=== PATIENT | female | born 1945 | race American Indian/Alaskan Native ===

== ENCOUNTER 2016-10-06 11:50 | Emergency (ER) | payer MEDICARE ==
[2016-10-06 11:50] VITALS: BMI 37.0
[2016-10-06] MEDS ORDERED: Sodium Chloride 0.9% 1,000 ML IV ONE (12:05)
--- NOTE | 2016-10-06 12:12 | C.PDOC ---
History Of Present Illness 70 y/o female presents to the ED with complaints of chest pain since 1100 today. Patient states pain started in right hand and radiated up her arm and into chest. Pain is sharp, 8/10 and intermittent. Patient also reports nausea. She has had similar pain in the past to her arms, from arthritis, but not the chest pain. Denies SOB, vomiting, diarrhea, leg pain or any other complaints. Denies injury. Denies hx CAD. Took aleve and aspirin at home MEDICAL ORDERLY. SHAISTA Risk Score for UA/NSTEMI - SHAISTA Risk Score Age > 64: YES 3 or more CAD Risk Factors: NO Known CAD (Stenosis greater than 50%): NO Aspirin use in past 7 days: NO Severe Angina: YES EKG ST changes greater than 0.5mm: NO Positive Cardiac Marker: NO SHAISTA Score: 2 % risk at 14 days of: all cause mortality, new or recurrent TN, or severe recurrent ischemia requiring urgen revascularization: 8% Wells Criteria for PE - Wells Criteria for Pulmonary Embolism Clinical Signs and Symptoms of DVT: No P.E is #1 Diagnosis, or Equally Likely: No Heart Rate >100: Yes Immobilization at least 3 days;Surgery previous 4 weeks: No Previous, objectively diagnosed PE or DVT: No Hemoptysis: No Malignancy w/treatment within 6 months, or palliative: No Total Score: 1.5 Time Seen by Provider: 10/06/16 11:59 Chief Complaint (Nursing): Chest Pain History Per: Patient History/Exam Limitations: no limitations Onset/Duration Of Symptoms: Waxing/Waning Current Symptoms Are (Timing): Still Present Severity: Severe Pain Scale Rating Of: 8 Quality: Sharp Modifying Factors: None Alleviating Factors: None Recent travel outside of the [place]: No Past Medical History Reviewed: Historical Data, Nursing Documentation, Vital Signs Vital Signs: Last Vital Signs Temp 98.1 F 10/06/16 14:34 Pulse 62 10/06/16 14:34 Resp 16 10/06/16 14:34 BP 144/70 10/06/16 14:34 Pulse Ox 98 10/06/16 14:34 - Medical History PMH: No Chronic Diseases Surgical History: Family History: States: Unknown Family Hx - Social History Hx Tobacco Use: No Hx Alcohol Use: No Hx Substance Use: No - Immunization History Hx Tetanus Toxoid Vaccination: No Hx Influenza Vaccination: No Hx Pneumococcal Vaccination: No Review Of Systems Constitutional: Negative for: Fever, Chills Cardiovascular: Positive for: Chest Pain Respiratory: Negative for: Shortness of Breath Gastrointestinal: Positive for: Nausea. Negative for: Vomiting, Abdominal Pain Musculoskeletal: Positive for: Arm Pain. Negative for: Shoulder Pain, Leg Pain Physical Exam - Physical Exam Appears: Non-toxic, No Acute Distress, Other (obese) Skin: Warm, Dry, No Rash Head: Atraumatic, Normacephalic Eye(s): bilateral: Normal Inspection, EOMI Neck: Normal, Normal ROM, Supple Chest: Symmetrical, Tenderness (reproducible pain to chest wall) Cardiovascular: Rhythm Regular, No Murmur Respiratory: Normal Breath Sounds, No Rales, No Rhonchi, No Wheezing Gastrointestinal/Abdominal: Normal Exam, Soft, No Tenderness Extremity: Normal ROM, No Tenderness, No Pedal Edema, No Calf Tenderness, Other (pain with abduction of right shoulder) Neurological/Psych: Oriented x3, Normal Speech, Normal Motor, Normal Sensation Gait: Steady ED Course And Treatment - Laboratory Results Result Diagrams: 10/06/16 12:27 10/06/16 12:27 Lab Interpretation: Abnormal Interpretation Of Abnormal: hypokalemia ECG: Interpreted By Me, Viewed By Me ECG Rhythm: Sinus Tachycardia ECG Interpretation: No Acute Changes, No Changes From Prior Rate From EC (BPM) - Radiology CXR: Interpreted by Me, Viewed By Me, Read By Radiologist CXR Interpretation: Yes: Other (Moderate venous congestion.). No: Infiltrates, Cardiomegaly Medical Decision Making Medical Decision Making: Plan: * EKG * CXR * labs * UA * IV fluids * nitroglycerin Progress: Labs reviewed and no acute findings, troponin was negative. Patient reevaluated and reports pain has mostly improved 3/10 on pain scale. Based on history and exam, recommend observation admission and serial cardiac enzymes. The patient declines admission to the hospital and wishes to leave the Emergency Department. This action is against my medical advice to the patient and the decision was made with informed refusal. The patient was told that admission is necessary and a full explanation of the rationale was given. The risks of leaving were explained to the patient and at bedside which include, but are not limited to, worsening chest pain, syncope, TN, permanent disability and deat. The patient has the capacity to make this informed decision and understands the clinical situation and my explanation of the risks of leaving. The patient voluntarily accepts these risks and a signed AMA form documenting our conversation was obtained.*The patient was given the opportunity to ask questions and reconsider. The patient was encouraged to return to the Emergency Department at any time for further care. 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 - Scribe Statement The provider has reviewed the documentation as recorded by the Scribe Mark Gill All medical record entries made by the Leopoldo were at my direction and personally dictated by me. I have reviewed the chart and agree that the record accurately reflects my personal performance of the history, physical exam, medical decision making, and the department course for this patient. I have also personally directed, reviewed, and agree with the discharge instructions and disposition.
[2016-10-06] MEDS ORDERED: Sodium Chloride 0.9% 1,000 ML ONE (12:28)
[2016-10-06 12:32] LABS: BASO % 0.6 % (0.0-2.0); EOS # 0.1 K/uL (0.0-0.7); EOS % 2.4 % (0.0-4.0); HEMATOCRIT 39.4 % (34.0-47.0); LYMPH % 48.7 % (20.0-40.0); MEAN CELL VOLUME 83.1 fL (81.0-99.0); MEAN CORPUSCULAR HGB CONC 32.5 g/dL (33.0-37.0); MEAN PLATELET VOLUME 10.2 fL (7.2-11.7); MONO # 0.5 K/uL (0.0-0.8); MONO % 8.2 % (0.0-10.0); NRBC % 0.1 % (0.0-2.0); RED CELL DISTRIBUTION WIDTH 13.9 % (11.5-14.5); WHITE BLOOD COUNT 6.1 K/uL (4.8-10.8)
[2016-10-06 12:41] LABS: INR 1.1
[2016-10-06 12:44] LABS: CHLORIDE 106 mmol/L (98-107)
[2016-10-06 12:45] LABS: POTASSIUM 3.1 mmol/L (3.6-5.2); SODIUM 140 mmol/L (132-148)
[2016-10-06 12:47] LABS: ALB/GLOB RATIO 1.1 (1.0-2.1); ALKALINE PHOSPHATASE 118 U/L (38-126); AST/SGOT 19 U/L (14-36); BILIRUBIN,TOTAL 0.7 mg/dL (0.2-1.3); BLOOD UREA NITROGEN 8 mg/dL (7-17); CARBON DIOXIDE 25 mmol/L (22-30); CHOLESTEROL 174 mg/dL (0-199); GFR AFRICAN-AMERICAN > 60; GLUCOSE,RANDOM 105 mg/dL (65-105); TOTAL PROTEIN 7.6 g/dL (6.3-8.3)
[2016-10-06 12:48] LABS: ALT/SGPT 22 U/L (9-52)
[2016-10-06] MEDS ORDERED: Potassium Chloride 20 mEq ER Tab PO STA (12:55)
[2016-10-06] MEDS ORDERED: Potassium Chloride 20 mEq ER Tab PO ONE (13:16)
--- NOTE | 2016-10-06 14:06 | RAD ---
PROCEDURE: CHEST RADIOGRAPH, 1 VIEW HISTORY: chest pain COMPARISON: None available. FINDINGS: LUNGS: Moderate venous congestion. PLEURA: No pneumothorax or pleural fluid seen. CARDIOVASCULAR: Normal. OSSEOUS STRUCTURES: No significant abnormalities. VISUALIZED UPPER ABDOMEN: Normal. OTHER FINDINGS: None. IMPRESSION: Moderate venous congestion.
[2016-10-06 14:36] VITALS: BP 144/70; PULSE 62; RESP 16; TEMP 98.1; O2SAT 98
--- NOTE | 2016-10-09 14:09 | CARD ---
APPROVED REPORT EKG Measurement Heart [id number] <Conclusion> Sinus tachycardia Nonspecific ST abnormality Abnormal ECG
== END 2016-10-06 15:00 | disposition left against medical advice (07) ==
LOC: C.ER 11:50
DX: R07.9 Chest pain, unspecified (principal)
CPT/HCPCS: 71010; 80053; 80061; 82948; 83880; 84484; 85025; 85610; 85730; 99285; J7040